=== PATIENT | female | born 1970 | race Caucasian/White ===

== ENCOUNTER 2021-12-04 21:33 | Inpatient (IN) ==
[2021-12-05] MEDS ORDERED: Haloperidol Oral Conc 10 MG/5 ML UDC PO PRN (00:15)
[2021-12-05] MEDS ORDERED: *HR* LORazepam 1 MG TABLET PO PRN (00:24)
[2021-12-05] MEDS ORDERED: ABHR TP PRN (00:26)
[2021-12-05] MEDS ORDERED: Ondansetron ODT 4 MG TAB.RAPDIS PO PRN (00:28)
[2021-12-05 07:32] VITALS: BP 71/58; PULSE 106; RESP 5; TEMP 97.6; O2SAT 78
[2021-12-05] MEDS ORDERED: OLANZapine 5 MG TAB.RAPDIS PO SCH (09:00)
[2021-12-05] MEDS ORDERED: [UNRECOGNIZED DRUG - OTHER] OP PRN (13:47)
== END 2021-12-05 16:51 | disposition expired | DRG 392 ==
LOC: INPGRE 23:00
PROVIDERS: ADMIT Family Medicine; ATTEND Family Medicine